=== PATIENT | male | born 1990 | race Caucasian/White ===

== ENCOUNTER 2016-09-15 11:55 | Emergency (ER) | payer OTHER ==
--- NOTE | ~2016-09-15 | ER ---
PATIENT'S NAME: INEZ SELLERS [facility] AGE: 26 Y [address] ROOM: [place] [address] LOCATION: [facility] ADMIT DATE: 09/15/2016 ER/Outpatient Report DISCHARGE DATE: 09/15/2016 FAMILY PHYSICIAN: Jeremías Mahmood MD ATTENDING PHYSICIAN: Uli Cortez HISTORY OF PRESENT ILLNESS: This patient is a 26-year-old, who had a left hand injury yesterday around 1500 hours. The patient was kicked in the left hand by a cow injuring his 3rd and 4th fingers, mainly at the PIP joint area and dorsally. He was initially seen by Dr. Mahmood in [place] and referred to Dr. Vázquez, orthopedic surgeon. He was told to come to the emergency department at [facility]. We did notify Dr. Vázquez, and Dr. Vázquez wanted to see the patient in his clinic. PHYSICAL EXAMINATION: VITAL SIGNS: The patient's blood pressure is 135/84; pulse 98; temperature 99, tympanic; O2 sat on room air is 94%. EXTREMITIES: The patient has swelling injury to the left hand involving the middle and ring finger. ASSESSMENT AND PLAN: The patient has no other injuries. No other medical problems. He was medically cleared here in the emergency department. The patient was discharged from the emergency department. He is instructed to follow up with Dr. Vázquez in his clinic as instructed. The patient understands. MD MK SUMMERS/modl /[id number] d: 09/15/16 1935 t: 09/16/16 0610, OUTPATIENT REPORT
== END 2016-09-15 12:29 | disposition disaster alternative care site (69) ==
LOC: GACC 11:55
DX: S69.92XA Unspecified injury of left wrist, hand and finger(s), initial encounter (principal); W55.22XA Struck by cow, initial encounter